=== PATIENT | female | born 1950 | race Caucasian/White ===

== ENCOUNTER 2019-09-21 13:29 | Emergency (ER) | payer MEDICARE ==
[2019-09-21] MEDS ORDERED: Sodium Chloride 0.9% 1000 ML 1,000 ML IV SCH (13:45)
--- NOTE | 2019-09-21 13:47 | ERPHSYRPT ---
- History of Present Illness Time Seen by Provider: 09/21/19 13:40 Source: patient Exam Limitations: no limitations Patient Subjective Stated Complaint: Fall- left shoulder pain Triage Nursing Assessment: Patient ambulated back to ED and transferred self to bed. Patient A+O X3. Patient's skin pink, warm and dry. Patient complains of fall today and yesterday. Patient states she doesn't remember falling, but having wake her up. Patient states Physician History: Patient is a 68-year-old female who presents to our ED with complaints of syncope. Patient syncopized yesterday. Patient checked her sugar and was found to be hypoglycemic. Patient injured her face. She currently has ecchymosis around her right eye. Patient had a second syncopal episode just prior to arrival. Patient currently complains of pain to her left shoulder. Left shoulder pain is well localized. No radiation. Pain worse with movement and palpation. No chest pain. No associated nausea or vomiting. No diaphoresis. No incontinence symptoms are mild to moderate in intensity. No specific worsening or improving factors. Patient voices no other complaints at this time. Witnessed: by family (Syncope lasted for less than 1 minute.) Precipitating Factors: none (Possible hypoglycemia. Glucose is currently 200 range.) Context: standing Loss of Consciousness: no loss of consciousness Charcter of event(s): collapsed Allergies/Adverse Reactions: meperidine [From Demerol] Allergy (Verified 09/21/19 13:43) Penicillins Allergy (Verified 09/21/19 13:43) Hx Influenza Vaccination/Date Given: No Hx Pneumococcal Vaccination/Date Given: No Immunizations Up to Date: Yes Travel Risk - International Travel Have you traveled outside of the country in past 3 weeks: No Have you or anyone close to you been diagnosed with or: No Do your reside in a community with a known COVID-19 case?: Yes If Yes where:: [facility] - Coronavirus Screening Has patient experienced Coronavirus symptoms: No - Past Medical History Pertinent Past Medical History: Yes Neurological History: No Pertinent History ENT History: No Pertinent History Cardiac History: No Pertinent History Respiratory History: No Pertinent History Endocrine Medical History: Diabetes Type II Musculoskeletal History: No Pertinent History GI Medical History: No Pertinent History History: No Pertinent History Psycho-Social History: No Pertinent History Female Reproductive Disorders: No Pertinent History - Past Surgical History Past Surgical History: No Neuro Surgical History: No Pertinent History Cardiac: No Pertinent History Respiratory: No Pertinent History Gastrointestinal: No Pertinent History Genitourinary: No Pertinent History Musculoskeletal: No Pertinent History Female Surgical History: No Pertinent History - Social History Smoking Status: Never smoker Exposure to second hand smoke: No Drug Use: none Patient Lives Alone: No - Female History Hx Now: No - Review of Systems Constitutional: No Fever, No Chills Eyes: No Symptoms Ears, Nose, & Throat: No Symptoms Respiratory: No Symptoms, No Cough, No Dyspnea Cardiac: No Symptoms, No Chest Pain, No Edema, No Syncope Abdominal/Gastrointestinal: No Symptoms, No Abdominal Pain, No Nausea, No Vomiting, No Diarrhea Genitourinary Symptoms: No Symptoms, No Dysuria Musculoskeletal: Injury (Pain to left shoulder. Well localized. ), No Back Pain, No Neck Pain Skin: Other (Ecchymosis around right eye.), No Rash Neurological: No Dizziness, No Focal Weakness, No Sensory Changes Psychological: No Symptoms Endocrine: No Symptoms Hematologic/Lymphatic: No Symptoms Immunological/Allergic: No Symptoms All Other Systems: Reviewed and Negative Physical Exam - Nursing Vital Signs Nursing Vital Signs: Initial Vital Signs Temperature 97.7 F 09/21/19 13:35 Pulse Rate 90 09/21/19 13:35 Respiratory Rate 18 09/21/19 13:35 Blood Pressure 175/82 09/21/19 13:35 O2 Sat by Pulse Oximetry 98 09/21/19 13:35 Pain Scale Pain Intensity 10 - Chen Coma Scale Best Eye Response (Chen): (4) open spontaneously Best Verbal Response ([place]): (5) oriented Best Motor Response ([place]): (6) obeys commands [place] Total: 15 - Physical Exam General Appearance: no apparent distress, alert Eye Exam: bilateral eye: normal inspection, PERRL, EOMI Ears, Nose, Throat Exam: normal ENT inspection, pharynx normal, moist mucous membranes Neck Exam: normal inspection, non-tender, supple, full range of motion Respiratory: normal breath sounds, lungs clear, No chest tenderness, No respiratory distress Cardiovascular: regular rate/rhythm, capillary refill <2 sec, No murmur, No pulse deficit Gastrointestinal: soft, No tenderness, No distention, No mass Back Exam: normal inspection, normal range of motion, No CVA tenderness, No vertebral tenderness Extremity Exam: normal inspection, normal range of motion, pelvis stable, No tenderness Mental Status: alert, oriented x 3, cooperative audio visual coordinator Exam: normal speech, PERRL, No facial droop Coordination/Gait: normal finger to nose Motor/Sensory: no motor deficit, no sensory deficit, no pronator drift Skin Exam: normal color, warm, dry, No rash SpO2 Interpretation: normal SpO2: 98 O2 Delivery: Room Air Procedures - Joint Reduction Timeout: Performed Joint Reduction Site: Left Conscious Sedation: Yes Reduction Attempts: 3 Pre-Procedure Neurovascular Exam: neurovascular intact, well perfused, neuro deficit Post Procedure Neurovascular Exam: neurovascular intact, unchanged from pre-exam Post Joint Reduction Film: joint not reduced - Procedural Sedation Indication: joint reduction Preparation: consent signed, capnographry, iv access, previous anesthia/ sedation without complications Sedation Parenteral: Ketamine, Morphine Response during procedure: moderate sedation, handled secretions adequately, maintained airway well, oxygenation stable Post-Procedure Response: return to baseline mental status, vital signs stable - Course Nursing assessment & vital signs reviewed: Yes EKG Interpreted by Me: RATE, Sinus Rhythm, NORMAL AXIS, Left Bundle Branch Block Ordered Tests: Active Orders 24 hr Category Date Time Status Accucheck STAT Care 09/21/19 13:41 Active CO2 Monitoring STAT Care 09/21/19 17:27 Active Die Welder STAT Care 09/21/19 13:43 Active EKG-ER Only STAT Care 09/21/19 13:41 Active IV Insertion STAT Care 09/21/19 13:41 Active Pulse Oximetry (ED) STAT Care 09/21/19 13:41 Active CHEST 1 VIEW (PORTABLE) Stat Exams 09/21/19 13:48 Completed FACIAL BONES WO CONTRAST [CT] Stat Exams 09/21/19 13:45 Completed HEAD WITHOUT CONTRAST [CT] Stat Exams 09/21/19 13:43 Completed SHOULDER Stat Exams 09/21/19 13:47 Completed SHOULDER Stat Exams 09/21/19 18:32 Taken SHOULDER Stat Exams 09/21/19 18:52 Taken CBC W DIFF Stat Lab 09/21/19 13:48 Completed CMP Stat Lab 09/21/19 13:48 Completed CULTURE,URINE Stat Lab 09/21/19 Received ETHYL ALCOHOL Stat Lab 09/21/19 13:48 Completed UA W/RFX UR CULTURE Stat Lab 09/21/19 Completed Standby Routine RT 09/21/19 17:28 Completed Medication Summary Generic Name Dose Route Start Last Admin Trade Name Gene PRN Reason Stop Dose Admin Sodium Chloride 1,000 mls @ 50 mls/hr 09/21/19 13:45 09/21/19 14:41 Sodium Chloride 0.9% 1000 Ml IV 10/21/19 13:44 50 mls/hr .Q20H SUHAIL Administration Discontinued Medications Generic Name Dose Route Start Last Admin Trade Name Gene PRN Reason Stop Dose Admin Levofloxacin/Dextrose 500 mg in 100 mls @ 100 mls/hr 09/21/19 16:16 09/21/19 18:51 Levofloxacin 500mg/100ml D5w IV 09/21/19 17:15 100 mls/hr STAT STA 100 mls/hr Administration Levofloxacin/Dextrose Confirm 09/21/19 16:23 Levofloxacin 500mg/100ml D5w Administered 09/21/19 16:24 Dose 500 mg in 100 mls @ ud IV .STK-MED ONE Ketamine HCl 50 mg 09/21/19 16:14 09/21/19 18:17 Ketamine Hcl 50 Mg/Ml IV 09/21/19 16:15 68 mg STAT ONE Administration Ketamine HCl 34 mg 09/21/19 18:40 09/21/19 18:37 Ketamine Hcl 50 Mg/Ml IV 09/21/19 18:41 34 mg STAT ONE Administration Metoclopramide HCl 10 mg 09/21/19 19:18 09/21/19 19:27 Reglan 10 Mg/2 Ml IV 09/21/19 19:19 10 mg STAT ONE Administration Metoclopramide HCl Confirm 09/21/19 19:26 Reglan 10 Mg/2 Ml Administered 09/21/19 19:27 Dose 10 mg .ROUTE .STK-MED ONE Morphine Sulfate 4 mg 09/21/19 16:07 09/21/19 16:51 Morphine Sulfate 4 Mg Inj IV 09/21/19 16:08 4 mg STAT ONE Administration Morphine Sulfate Confirm 09/21/19 16:22 Morphine Sulfate 4 Mg Inj Administered 09/21/19 16:23 Dose 4 mg .ROUTE .STK-MED ONE Morphine Sulfate Confirm 09/21/19 18:25 Morphine Sulfate 4 Mg Inj Administered 09/21/19 18:26 Dose 8 mg .ROUTE .STK-MED ONE Morphine Sulfate Confirm 09/21/19 18:26 Morphine Sulfate 2 Mg Inj Administered 09/21/19 18:27 Dose 2 mg .ROUTE .STK-MED ONE Morphine Sulfate 6 mg 09/21/19 18:33 09/21/19 18:27 Morphine Sulfate 4 Mg Inj IV 09/21/19 18:34 6 mg STAT ONE Administration Ondansetron HCl Confirm 09/21/19 19:19 Zofran 4 Mg/2 Ml Vial Administered 09/21/19 19:20 Dose 4 mg .ROUTE .STK-MED ONE Lab/Rad Data: Laboratory Result Diagrams 09/21/19 13:48 09/21/19 13:48 Laboratory Results 09/21/19 09/21/19 09/21/19 Range/Units Unknown 13:48 13:48 WBC 10.5 (4.0-10.5) K/mm3 RBC 4.00 L (4.1-5.4) M/mm3 Hgb 12.0 (12.0-16.0) gm/dl Hct 37.6 (35-47) % MCV 94.0 (78-100) fl MCH 30.0 (26-32) pg MCHC 31.9 L (32-36) g/dl RDW 14.6 H (11.5-14.0) % Plt Count 349 (150-450) K/mm3 MPV 9.6 (7.5-11.0) fl Gran % 89.5 H (36.0-66.0) % Eos # (Auto) 0.11 (0-0.5) Absolute Lymphs (auto) 0.50 L (1.0-4.6) Absolute Monos (auto) 0.46 (0.0-1.3) Lymphocytes % 4.8 L (24.0-44.0) % Monocytes % 4.4 (0.0-12.0) % Eosinophils % 1.1 (0.00-5.0) % Basophils % 0.2 (0.0-0.4) % Absolute Granulocytes 9.36 H (1.4-6.9) Basophils # 0.02 (0-0.4) Sodium 140 (137-145) mmol/L Potassium 4.6 (3.5-5.1) mmol/L Chloride 104 (98-107) mmol/L Carbon Dioxide 25 (22-30) mmol/L Anion Gap 15.3 H (5-15) MEQ/L BUN 27 H (7-17) mg/dL Creatinine 0.96 (0.52-1.04) mg/dL Estimated GFR > 60.0 ML/MIN Glucose 265 H (74-106) mg/dL Calcium 9.1 (8.4-10.2) mg/dL Total Bilirubin 0.60 (0.2-1.3) mg/dL AST 29 (14-36) U/L ALT 21 (0-35) U/L Alkaline Phosphatase 84 (38-126) U/L Serum Total Protein 8.0 (6.3-8.2) g/dL Albumin 4.1 (3.5-5.0) g/dL Urine Color YELLOW (YELLOW) Urine Appearance SLIGHTLY CLOUDY (CLEAR) Urine pH 5.0 (5-6) Ur Specific [place] 1.014 (1.005-1.025) Urine Protein NEGATIVE (Negative) Urine Ketones NEGATIVE (NEGATIVE) Urine Blood SMALL (0-5) Carlos/ul Urine Nitrite POSITIVE (NEGATIVE) Urine Bilirubin NEGATIVE (NEGATIVE) Urine Urobilinogen NEGATIVE (0-1) mg/dL Ur Leukocyte Esterase TRACE (NEGATIVE) Urine WBC (Auto) 3-5 (0-5) /HPF Urine RBC (Auto) NONE (0-2) /HPF U Epithel Cells (Auto) RARE (FEW) /HPF Urine Bacteria (Auto) MANY (NEGATIVE) /HPF Urine Mucus (Auto) MANY (NEGATIVE) /HPF Urine Culture Reflexed YES (NO) Urine Glucose >=500 (NEGATIVE) mg/dL Ethyl Alcohol < 10 (0-10) mg/dL Slides for Path Review YES - Progress Progress Note: 09/21/19 20:17 Showed reduction attempted. Shoulder reduces and re-dislocates. 3 attempts were made. Reduction occurs followed by redislocation when applying sling. Case discussed with Dr. Caraballo of [facility] who accepts admission for syncope and shoulder dislocation. Case discussed with Dr. Cabral of orthopedics accepts consultation. Patient neurovascular intact distally post procedure and post sling application Counseled pt/family regarding: lab results, diagnosis, rad results - Departure Departure Disposition: Transfer, Extended Care Facility Clinical Impression: Syncope and collapse, Hyperglycemia, Dehydration, UTI (urinary tract infection) , Pleural effusion, Cardiomegaly, Shoulder dislocation, Sinusitis Condition: Stable Critical Care Time: No Referrals: LEOLA BAEZA [Primary Care Provider] -
[2019-09-21 13:59] LABS: Absolute Neutrophil Ct (ANC) 9.36 (1.4-6.9); BASOPHIL % 0.2 % (0.0-0.4); Basophil (Absolute #) 0.02 (0-0.4); Eosinophil % 1.1 % (0.00-5.0); Eosinophil (Absolute #) 0.11 (0-0.5); Hematocrit 37.6 % (35-47); Lymphocytes % 4.8 % (24.0-44.0); Mean Corpuscular Hgb Concent. 31.9 g/dl (32-36); Mean Platelet Volume 9.6 fl (7.5-11.0); Monocyte (Absolute #) 0.46 (0.0-1.3); Monocytes % 4.4 % (0.0-12.0); Neutrophil % 89.5 % (36.0-66.0); Platelet Count 349 K/mm3 (150-450); Red Cell Distribution Width 14.6 % (11.5-14.0); White Blood Count 10.5 K/mm3 (4.0-10.5)
[2019-09-21 14:11] LABS: ALBUMIN 4.1 g/dL (3.5-5.0); ALKALINE PHOSPHATASE 84 U/L (38-126); ANION GAP 15.3 MEQ/L (5-15); BLOOD UREA NITROGEN 27 mg/dL (7-17); CHLORIDE 104 mmol/L (98-107); Calcium 9.1 mg/dL (8.4-10.2); Carbon Dioxide 25 mmol/L (22-30); Creatinine 1 0.96 mg/dL (0.52-1.04); Glucose 265 mg/dL (74-106); Potassium 4.6 mmol/L (3.5-5.1); SGOT/AST 29 U/L (14-36); SGPT/ALT 21 U/L (0-35); SODIUM 140 mmol/L (137-145)
[2019-09-21] MEDS ORDERED: Sodium Chloride 0.9% 1000 ML 1,000 ML ONE (14:17)
[2019-09-21 14:27] LABS: ETHYL ALCOHOL < 10 mg/dL (0-10)
--- NOTE | 2019-09-21 14:31 | XRAY ---
Indication: Pain following fall. Comparison: January 08, 2007. Portable apical lordotic chest now demonstrates right costophrenic angle blunting favoring tiny pleural effusion/thickening and cardiomegaly. Remaining heart and lung unremarkable. Bony thorax demonstrates degenerative changes and left humeral head dislocation.
--- NOTE | 2019-09-21 14:33 | XRAY ---
Indication: Pain following fall. Comparison: None AP/lateral left shoulder demonstrates humeral head dislocation anteriorly. Elsewhere moderate AC degenerative arthropathy and mild multilevel degenerative spondylosis.
--- NOTE | 2019-09-21 14:35 | XRAY ---
Indication: Right-sided pain following fall. Multiple contiguous axial images obtained through the head without contrast. Comparison: None Age-appropriate global atrophy. No acute intracranial hemorrhage, abnormal extra-axial fluid collection, or mass effect. Fourth ventricle is midline without hydrocephalus. Arias-white matter differentiation preserved. Bony calvarium intact. There is moderate right and minimal left maxillary sinus mucosal thickening with right maxillary sinus fluid leveling. Mastoid air cells are clear. Impression: Paranasal sinus disease. Remaining CT head without contrast exam is negative.
--- NOTE | 2019-09-21 14:39 | XRAY ---
Indication: Right facial pain following fall. Multiple contiguous axial images obtained through the facial bones. Sagittal and coronal reformatted images obtained. Comparison: None No acute fracture, suspicious bony lesions, or radiopaque foreign body. Orbits including roof, carter, and floors intact. Moderate right and minimal left maxillary sinus mucosal thickening with small right maxillary sinus fluid leveling. Nasal passages are clear without significant nasal septal deviation. Remaining visualized noncontrasted soft tissues unremarkable. Impression: 1. Paranasal sinus disease. 2. Remaining CT facial bones negative.
[2019-09-21 15:42] LABS: Appearance SLIGHTLY CLOUDY (CLEAR); Bacteria MANY /HPF (NEGATIVE); Bilirubin NEGATIVE (NEGATIVE); Blood SMALL Ery/ul (0-5); Epithelial Cells RARE /HPF (FEW); Glucose >=500 mg/dL (NEGATIVE); Ketones NEGATIVE (NEGATIVE); Leukocyte Esterase TRACE (NEGATIVE); Mucus MANY /HPF (NEGATIVE); Nitrite POSITIVE (NEGATIVE); Protein,Urine Dip NEGATIVE (Negative); Specific Gravity 1.014 (1.005-1.025); Urobilinogen NEGATIVE mg/dL (0-1)
[2019-09-21 15:45] LABS: Slide Review 1 YES
[2019-09-21] MEDS ORDERED: MORPHINE SULFATE 4 MG INJ IV ONE ×2 (16:07→18:33)
[2019-09-21] MEDS ORDERED: Ketamine HCl 50 MG/ML IV ONE ×2 (16:14→18:40)
[2019-09-21] MEDS ORDERED: Levofloxacin 500MG/100ML D5W 500 MG/100 ML BAG IV STA (16:16)
[2019-09-21] MEDS ORDERED: MORPHINE SULFATE 4 MG INJ ONE ×2 (16:22→18:25)
[2019-09-21] MEDS ORDERED: Levofloxacin 500MG/100ML D5W 500 MG/100 ML BAG IV ONE (16:23)
[2019-09-21] MEDS ORDERED: MORPHINE SULFATE 2 MG INJ ONE (18:26)
[2019-09-21] MEDS ORDERED: Reglan 10 MG/2 ML IV ONE (19:18)
[2019-09-21] MEDS ORDERED: Zofran 4 MG/2 ML VIAL ONE (19:19)
[2019-09-21] MEDS ORDERED: Reglan 10 MG/2 ML ONE (19:26)
[2019-09-21 22:08] VITALS: BP 125/69; O2SAT 97
[2019-09-21 22:14] VITALS: PULSE 88
--- NOTE | 2019-09-22 08:35 | XRAY ---
Indication: Post reduction. Comparison: Taken earlier in the day. Portable AP left shoulder unchanged again demonstrating humeral head dislocation anteriorly and moderate AC degenerative arthropathy.
--- NOTE | 2019-09-22 08:37 | XRAY ---
Indication: Second attempt post reduction. Comparison: Taken earlier in the day. Portable AP left shoulder unchanged again demonstrating humeral head dislocation anteriorly and moderate AC degenerative arthropathy. No new/acute findings.
== END 2019-09-21 22:20 | disposition short-term general hospital (02) ==
LOC: ED 13:29
DX: S43.005A Unspecified dislocation of left shoulder joint, initial encounter (principal); M25.512 Pain in left shoulder; R29.6 Repeated falls; R55 Syncope and collapse; E11.649 Type 2 diabetes mellitus with hypoglycemia without coma; E86.0 Dehydration; N39.0 Urinary tract infection, site not specified; J90 Pleural effusion, not elsewhere classified; I51.7 Cardiomegaly; J32.9 Chronic sinusitis, unspecified
CPT/HCPCS: 23650; 36000; 36415; 70450; 70486; 71045; 73030; 80053; 81001; 85025; 87077; 87086; 87186; 93005; 93041; 94760; 94770; 94799; 96360; 96361; 96365; 96374; 96375; 96376; 99285; G0480; 80307; J1956; J2270; J2405; L3650